=== PATIENT | female | born 1980 ===

== ENCOUNTER 2021-12-14 10:42 | Outpatient (REF) | payer OTHER, SELFPAY ==
--- NOTE | 2021-12-14 11:26 | MHC.AU.HAS ---
Hearing Aid Evaluation Date of Visit: 12/14/21 Historical Information: Description of Hearing: Mild/moderate low-mid frequency sensorineural hearing loss, rising to normal at 8000 Hz bilaterally Summary: Patient was medically cleared for hearing aids by ENT, Dr. Sujey Hollis. Patient believes the hearing loss has been present since at least her 20's, but possibly earlier. She remembers developing tinnitus when she was 6-7 years old, and it has persisted since then. Hearing aid options were discussed. She would like a CASIE style. Hearing Aid Prescription: Based on the individual?s shared listening needs, communication environments, dexterity, desire for connectivity, and personal preferences, the following prescription for amplification has been made: Right ear: Web Content Editor: Phonak Model: Audeo P70-R Battery Size: Rechargeable Color: P1 Lead Rider: 0M Left ear: Web Content Editor: Phonak Model: Audeo P70-R Battery Size: Rechargeable Color: P1 Lead Rider: 0M Action Taken/Action Needed: Hearing Instrument Fitting to be scheduled when materials arrive Primary Diagnosis: H90.3 Bilateral Sensorineural Hearing Loss Signature: Provider: Boy Trna, [facility]
== END 2021-12-14 10:43 | disposition home or self-care (01) ==
LOC: HO.HAP 10:42
PROVIDERS: Visit Provider Otolaryngology
DX: Z46.1 Encounter for fitting and adjustment of hearing aid (principal); H90.3 Sensorineural hearing loss, bilateral
CPT/HCPCS: 92591

== ENCOUNTER 2022-01-18 12:46 | Outpatient (REF) | payer OTHER, SELFPAY ==
--- NOTE | 2022-01-18 13:43 | MHC.AU.HFA ---
Hearing Instrument Fitting- Adult- Binaural Date of Visit: 01/18/22 Hearing Instruments Dispensed: Right Ear: PHONAK AUDEO P70-R, [id number], SAND BEIGE Repair Warranty: 03/14/2025 Loss and Damage Warranty: 03/14/2025 Battery Size: Rechargeable Color: P1 Sausage Stringer: 0M Sausage Stringer 4.0 Type of Dome: Medium Open Type of Wax Guard: CeruShield Disk Left Ear: PHONAK AUDEO P-70 R, [id number], SAND BEIGE Repair Warranty: 03/14/2025 Loss and Damage Warranty: 03/14/2025 Battery Size: Rechargeable Color: P1 Sausage Stringer: 0M Sausage Stringer 4.0 Type of Dome: Medium Open Type of Wax Guard: CeruShield Disk Summary of Fitting: Feedback customer acquisition manager run. Verifit performed and levels adjusted to better reach targets. Patient felt her voice was too loud and had a microphone-like quality. Lowered to 80%, with patient reporting significant improvement in quality. Auto-acclimation was turned on and is set to increase to 90% over the next 14 days. Hearing aid care and maintenance were discussed and practiced. Hearing aids were paired to the phone and the osman. Recommendations: A hearing instrument follow-up was scheduled. Diagnosis Code(s): H90.3 Bilateral Sensorineural Hearing Loss Signature: Provider: Boy Tran, [facility]
== END 2022-01-18 12:47 | disposition home or self-care (01) ==
LOC: HO.HAP 12:46
PROVIDERS: Visit Provider Otolaryngology
DX: Z46.1 Encounter for fitting and adjustment of hearing aid (principal); H90.3 Sensorineural hearing loss, bilateral
CPT/HCPCS: V5011; V5020; V5160; V5261

== ENCOUNTER 2022-02-01 10:48 | Outpatient (REF) | payer OTHER, SELFPAY | END 2022-02-01 10:49 | disposition home or self-care (01) | LOC: HO.HAP 10:48 | PROVIDERS: Visit Provider Internal Medicine | DX: Z13.89 Encounter for screening for other disorder (principal) ==

== ENCOUNTER 2024-07-16 10:35 | Outpatient (REF) | payer OTHER, SELFPAY ==
--- OUTSIDE RECORDS SUMMARY | 2024-07-16 11:04 | XMS_ITS | Data Portability ---
Author Organization [facility] Address [address] [place] [address] Care Team Providers Care Silo Worker Name Role Phone NEELAM BEAUCHAMP Primary Care Provider Assessment Encounter Date Assessment Date Assessment LastModified by Organization Details LastModified Time 11/01/2023 11/01/2023 Assessment: Decreased quad strength. Unable to reach TKE during gait. Plan: Continue PT @ 2x/wks to decrease pain, increase ROM, optimize mechanics for functional mobility with gait and stairs, and facilitate independence with functional ADL's. Not available 11/03/2023 22:02:45 11/06/2023 11/06/2023 Assessment: Increased TKE during gait. Progressing strength appropriately. Plan: Continue PT @ 2x/wks to decrease pain, increase ROM, optimize mechanics for functional mobility with gait and stairs, and facilitate independence with functional ADL's. Not available 11/07/2023 11:00:37 11/11/2023 11/11/2023 Assessment: Improving quad strength. Good elia to L4 step therex. Plan: Continue PT @ 2x/wks to decrease pain, increase ROM, optimize mechanics for functional mobility with gait and stairs, and facilitate independence with functional ADL's. Not available 11/12/2023 08:54:22 11/13/2023 11/13/2023 Assessment: Improving strength w/ increased px or sxs. Good gait dynamics, improved heel - toe pattern. Plan: Continue PT until scheduled appts improving strength and functional movement Not available 11/17/2023 22:14:29 11/22/2023 11/22/2023 Assessment: Improving strength w/ increased px or sxs. Good gait dynamics, improved heel - toe pattern. Increased LE functional ROM. Plan: d/c to HEP Not available 11/24/2023 21:53:52 Plan of Treatment Reminders Order Date Submit Date Provider Last Modified By Organization Details Last Modified Time Details Appointments None record ed. Lab None record ed. Referral None record ed. Procedures None record ed. Surgeries None record ed. Imaging None record ed. Medication Orders None record ed. Patient TargetsNo targets recorded. Patient InstructionsNo instructions recorded. Reason for Referral None Reported. Problems Name Problem SNOMED Code Status Onset Date Resolution Date Notes Provider Name and Address Organization Details Recorded Time Pain of left knee joint 0561363508025 07 Active 2023 DANDRE [facility]if [facility] 4 10:41:43 Derangement of medial meniscus of left knee 4872750030465 08 Active 2023 DANDRE sharif [facility] 4 11:04:52 Problem Notes None recorded. Procedures Surgical History Date Name Laterality Status Provider Name and Address Organization Details Recorded Time 4 09973 Therapeutic Exercise (1:1) completed Sy Martineze, [employer] [address], [place], [address], [facility] 11/24/2023 21:52:15 4 90278: Manual therapy completed Sy Martineze, [employer] [address], [place], [address], [facility] 11/24/2023 21:52:15 4 49299 Therapeutic Exercise (1:1) completed Sy Diazdge, [employer] [address], [place], [address], [facility] 11/17/2023 22:10:01 4 81839: Manual therapy completed Sy Diazdge, [employer] [address], [place], [address], [facility] 11/17/2023 22:10:01 4 27098 Therapeutic Exercise (1:1) completed Damieana Fudge, [employer] [address], [place], [address], [facility] 11/11/2023 09:29:02 4 27119: Manual therapy completed Sy Diazdge, [employer] [address], [place], [address], [facility] 11/11/2023 09:29:02 4 87701 Therapeutic Exercise (1:1) completed Sy Fudge, [employer] [address], [place], [address], [facility] 11/06/2023 10:27:05 4 20857: Manual therapy completed Sy Martineze, [employer] [address], [place], [address], [facility] 11/06/2023 10:27:05 4 27809 Therapeutic Exercise (1:1) completed Sy Martineze, [employer] [address], [place], [address], [facility] 11/03/2023 21:59:20 4 10304: Manual therapy completed Sy Martineze, [employer] [address], [place], [address], [facility] 11/03/2023 21:59:20 4 05520 Therapeutic Exercise (1:1) completed Sy Martineze, [employer] [address], [place], [address], [facility] 10/29/2023 11:51:26 4 59650: Manual therapy completed Sy Martineze, [employer] [address], [place], [address], [facility] 10/29/2023 10:52:29 4 51043 Therapeutic Exercise (1:1) completed Sy Diazdge, [employer] [address], [place], [address], [facility] 10/28/2023 07:46:08 4 38192: Manual therapy completed Sy Lopez, [employer] [address], [place], [address], [facility] 10/28/2023 07:46:08 4 77716 Therapeutic Exercise (1:1) completed Froy Andrade, PT [address], [place], [address], [facility] 10/21/2023 10:58:01 4 00095: Manual therapy completed Froy Andrade, PT [address], [place], [address], [facility] 10/21/2023 10:58:01 4 19298 Therapeutic Exercise (1:1) completed Sy Lopez, [employer] [address], [place], [address], [facility] 10/16/2023 07:17:22 4 65012: Manual therapy completed Sy Lopez, FREDO [address], [place], [address], [facility] 10/16/2023 07:17:22 4 42324 Therapeutic Exercise (1:1) completed Froy Andrade, PT [address], [place], [address], [facility] 10/10/2023 06:42:12 4 32546: Manual therapy completed Froy Andrade PT [address], [place], [address], [facility] 10/10/2023 06:42:12 4 29830 Therapeutic Exercise (1:1) completed Sy Lopez, [employer] [address], [place], [address], [facility] 10/07/2023 11:26:28 4 01794: Manual therapy completed Sy Lopez, [employer] [address] [facility], [place], [address], [facility] 10/07/2023 11:26:28 4 17756 Therapeutic Exercise (1:1) completed Sy Lopez, [employer] [address], [place], [address], [facility] 10/06/2023 22:34:32 4 95171: Manual therapy completed Sy Lopez, [employer] [address], [place], [address], [facility] 10/06/2023 22:34:41 4 56548 Therapeutic Exercise (1:1) completed Froy Andrade, PT [address], [place], [address], [facility] 09/30/2023 10:29:51 4 42531: Low complexity PT Eval completed Froy Andrade, PT [address] [facility], [place], [address], [facility] 09/30/2023 10:29:42 4 Sports Knee 4&1 completed Ryan Yao MD [address], [place], [address], [facility] 08/29/2023 16:56:35 Imaging Results None recorded. Procedure Notes None recorded. Medical Equipment None Reported. Allergies No known drug allergies Medications Name Sig Start Date Stop Date Status Note LastModified by Organization Details LastModified Time IBU 800 mg tablet TAKE ONE TABLET BY MOUTH THREE TIMES A DAY NEEDED FOR PAIN. active Not Available Not Available No t Available amoxicillin 875 mg tablet TAKE ONE TABLET BY MOUTH TWICE A DAY active Not Available Not Available No t Available methocarbamol 750 mg tablet TAKE ONE TABLET BY MOUTH DAILY AT BEDTIME NEEDED FOR MUSCLE SPASM FOR 5 DAYS active Not Available Not Available No t Available escitalopram 5 mg tablet TAKE ONE TABLET BY MOUTH EVERY DAY active Not Available Not Available No t Available Ferretts 325 mg (106 mg iron) tablet TAKE ONE TABLET BY MOUTH EVERY DAY active Not Available Not Available No t Available diclofenac 1 % topical gel APPLY 2 GRAMS TO THE AFFECTED AREA(S) BY TOPICAL ROUTE 4 TIMES PER DAY 2023 active Not Available Not Available Not Avai lable Allergy active Not Available Not Avail able Not Available Lo-Zumandimine (28) 3 mg-0.02 mg tablet TAKE ONE TABLET BY MOUTH DAILY active Not Available Not Available No t Available Vitals None Recorded Social History None recorded. Functional Status None recorded. Mental Status None recorded. Family History Nothing Reported. Medical History No medical history recorded. Gynecological HistoryNo gynecological history recorded. Obstetrics History GPAL:G 0 P 0 0 0 0 Past Encounters Encounter ID Performer Location Encounter Start Date Encounter Closed Date Diagnosis/Indication Diagnosis SNOMED-CT Code Diagnosis ICD10 Code Diagnosis Note [id number] MD Marylin Ortega [address] [place] [address] 08/29/2023 10:17:42 09/25/2023 13:06:31 Pain of left knee joint [id number] 42774 M25.562 Derangemen t of medial meniscus of left knee 6148692062 40488 M23.373 [id number] Froy Andrade, PT [facility] [address] [place] [place] [address] 09/30/2023 08:25:02 09/30/2023 09:16:03 Derangement of medial meniscus 725339237 M23.197 [id number] Sy Lopez, [employer] [facility] [address] [place] [place] [address] 10/04/2023 09:48:18 10/04/2023 10:18:08 Derangement of medial meniscus 977327952 M23.020 [id number] Sy Lopez, [employer] [facility] [address] [place] [address] 10/07/2023 10:51:00 10/07/2023 13:00:31 Derangement of medial meniscus 600278845 M23.546 [id number] Froy Andrade PT [facility] [address] [place] [address] 10/10/2023 08:05:49 10/10/2023 10:33:26 Derangement of medial meniscus 508107956 M23.201 [id number] Ryan Yao MD [facility] [address] [place] [address] 10/10/2023 11:26:24 11/06/2023 15:30:03 Sprain of medial collateral ligament of knee 26699986 S83.412D Contusion of left knee 0127460816 1501690 S80.02XD [id number] Sy Lopez, [employer] [facility] [address] [place] [address] 10/14/2023 09:39:38 10/14/2023 10:07:17 Derangement of medial meniscus 873805783 M23.460 [id number] Froy Andrade, PT [facility] [address] [place] [address] 10/22/2023 08:34:09 10/22/2023 09:14:42 Derangement of medial meniscus 016461871 M23.687 [id number] Sy Lopez, [employer] [facility] [address] [place] [address] 10/25/2023 08:36:24 10/25/2023 10:50:04 Derangement of medial meniscus 597338475 M23.299 [id number] Sy Lopez, [employer] [facility] [address] [place] [address] 10/28/2023 09:01:20 10/28/2023 09:42:12 Derangement of medial meniscus 403187241 M23.625 [id number] Sy Lopez, [employer] [facility] [address] [place] [address] 11/01/2023 09:07:13 11/01/2023 09:42:10 Derangement of medial meniscus 685530785 M23.852 [id number] Sy Lopez, [employer] [facility] [address] [place] [address] 11/06/2023 10:03:52 11/06/2023 10:57:12 Derangement of medial meniscus 307750467 M23.450 [id number] Sy Diazmainormike, [employer] [facility] [address] [place] [address] 11/11/2023 09:06:00 11/11/2023 09:48:44 Derangement of medial meniscus 143371512 M23.852 [id number] Sy Lopez, [employer] [facility] [address] [place] [address] 11/13/2023 15:27:38 11/13/2023 16:52:27 Derangement of medial meniscus 921796997 M23.622 [id number] Sy Lopez, [employer] [facility] [address] [place] [address] 11/22/2023 09:06:53 11/22/2023 10:14:45 Derangement of medial meniscus 108896086 M23.309 Health Concerns Section Related Observation LastModified by Organization Detai ls LastModified Time None Recorded Concern Status LastModified by Organization Details LastModified Time None Recorded Advance Directives Directive None Recorded Payers Encounter Date Sequence Insurance Name Policy Number Policy Parry Covered Member ID Parry Member ID Guarantor Name 11/01/2023 1 [facility] [id number] Laura Jeremy HilarioAlban [id number] Laura Alban 11/06/2023 1 [facility]MEDICA[facility] HMO) [id number] Laura Jeremy HilarioAlban [id number] Laura Alban 11/11/2023 1 [facility] (MEDICAID H[facility]) [id number] Laura A Alban [id number] Laura Alban 11/13/2023 1 [facility]) [id number] Laura A Alban [id number] Laura Alban 11/22/2023 1 [facility]ICA[facility] H[facility]) [id number] Laura Jeremy HilarioAlban [id number] Laura Alban Notes Date Note Type Note Provider Name and Address Organization Details Recorded Time 11/01/2023 text/html Patient reports 0/10 pain at rest, increased pain with exercise but subsides. Sy Lopez [employer] [address], [place], [address], [facility] 11/03/2023 22:03:02 11/06/2023 text/html Patient reports 0/10 pain at rest. Sy Lopez PTA [address], [place], [address], [facility] 11/07/2023 11:00:53 11/11/2023 text/html Patient reports 0/10 pain at rest. Sy Lopez PTA [address], [place], [address], [facility] 11/12/2023 08:54:43 11/13/2023 text/html Patient reports 0/10 pain at rest. Sy Lopez PTA [address], [place], [address], [facility] 11/17/2023 22:14:56 11/22/2023 text/html Patient reports 0/10 pain at rest, doing well at this time, able to climb stairs easier. Sy Lopez PTA [address], [place], [address], [facility] 11/24/2023 21:54:17 OBGyn Episode No OBEpisode recorded.
--- NOTE | 2024-07-16 13:07 | MHC.AU.HA3 ---
Hearing Instrument Follow-Up- Binaural Date of Visit: 07/16/24 Right Ear: Tae, Model, Color, Serial Number: RUSS ASCENCIO P70-R, [id number], YOVANY BAUER [employer]ist Repair Warranty: 03/14/2025 [employer]ist Loss and Damage Warranty: 03/14/2025 [facility] Service Plan: Battery Size: Rechargeable Physical Testing Supervisor/Slim Tube: 1M Physical Testing Supervisor 4.0 Earmold/Dome/CShell/SlimTip:Small vented Dome Type of Wax Guard: CeruShield Disk Dispensed By: [facility] Date of Fittin01/18/2022 Left Ear: Tae, Model, Color, Serial Number: RUSS ASCENCIO P-70 R, [id number], YOVANY BAUER [employer] Specialist Repair Warranty: 03/14/2025 [employer]ist Loss and Damage Warranty: 03/14/2025 [facility] Service Plan: Battery Size: Rechargeable Physical Testing Supervisor/Slim Tube: 1M Physical Testing Supervisor 4.0 Earmold/Dome/CShell/SlimTip: Small vented Dome Type of Wax Guard: CeruShield Disk Dispensed By: [facility] Date of Fittin01/18/2022 Follow-Up Summary: Laura is here for evaluation, [facility]. She was fit with hearing aids here in 2021, wants to get back on track for hearing services. Notes she has been asking people to repeat themselves. Slight change in hearing noted. Cleaned aids, changed wax guards, ran through dehumidifier. Changed to small vented domes and reprogrammed to new audiogram/acoustic settings. Patient reported improvement in office, will assess and return if not satisfactory. Recommendations: Recommendations: Hearing instrument maintenance in 6 months, or sooner if needed. Diagnosis Code(s): Primary Diagnosis: H90.3 Bilateral Sensorineural Hearing Loss Signature: Provider: Kane Palm, [facility]
== END 2024-07-16 10:36 | disposition home or self-care (01) ==
LOC: HO.SH 10:35
DX: Z01.118 Encounter for examination of ears and hearing with other abnormal findings (principal); H90.3 Sensorineural hearing loss, bilateral
CPT/HCPCS: 92557; 92593; 99499